=== PATIENT | female | born 1980 | race Caucasian/White ===

== ENCOUNTER 2017-10-30 21:01 | Inpatient (IN) | payer BC, MEDICAID ==
[~2017-10-30] VITALS: Ht 162.6 cm; Wt 57.0 kg
[2017-10-30] MEDS: THIAMINE 100 MG TAB PO SCH (21:00)
[2017-10-30] MEDS ORDERED: TEMA15CA2 PO (21:17)
[2017-10-30] MEDS ORDERED: HYDR-643 PO (21:17)
[2017-10-30] MEDS ORDERED: EFFE37.527 PO (21:17)
[2017-10-30] MEDS ORDERED: PROZ40CA PO (21:17)
[2017-10-30 21:43] LABS: MEAN CORPUSCULAR HEMOGLOBIN 28.2 pg (27.0-33.0); MEAN CORPUSCULAR HGB CONC 33.6 g/dl (32.0-36.5); PLATELET COUNT, AUTOMATED 221 10^3/uL (150-450); RED CELL DISTRIBUTION WIDTH 16.8 % (11.5-14.5); WHITE BLOOD COUNT 6.4 10^3/uL (4.0-10.0)
[2017-10-30 21:52] LABS: CONTROL LINE HCG INT CTR LINE PRESENT
[2017-10-30 21:57] LABS: METHADONE URINE NEGATIVE (NEGATIVE)
[2017-10-30 22:08] LABS: ALBUMIN 3.3 GM/DL (3.2-5.2); ALBUMIN/GLOBULIN RATIO 1.03 (1.00-1.93); ALKALINE PHOSPHATASE 63 U/L (45-117); ALT/SGPT 17 U/L (12-78); ANION GAP 9 MEQ/L (8-16); AST/SGOT 13 U/L (7-37); BILIRUBIN,DIRECT < 0.1 MG/DL (0.0-0.2); BILIRUBIN,TOTAL 0.2 MG/DL (0.2-1.0); BLOOD UREA NITROGEN 11 MG/DL (7-18); CALCIUM LEVEL 8.7 MG/DL (8.5-10.1); CARBON DIOXIDE LEVEL 27 MEQ/L (21-32); CHLORIDE LEVEL 108 MEQ/L (98-107); CREATININE FOR GFR 0.97 MG/DL (0.55-1.02); GLOMERULAR FILTRATION RATE > 60.0 (>60); GLUCOSE, FASTING 67 MG/DL (70-105); POTASSIUM SERUM 3.8 MEQ/L (3.5-5.1); SODIUM LEVEL 144 MEQ/L (136-145); TOTAL PROTEIN 6.5 GM/DL (6.4-8.2)
[2017-10-30] MEDS ORDERED: MAALOX 30 ML SUSP *UDC PO PRN (23:00)
[2017-10-30] MEDS ORDERED: MOM 30ML SUSPENSION UDC PO PRN (23:00)
[2017-10-30] MEDS ORDERED: LORazepam 2 MG TAB PO PRN (23:00)
[2017-10-31 00:03] VITALS: BP 120/59
--- NOTE | 2017-10-31 08:05 | ECGEPIP ---
Stationary ECG Study [facility] - ED Test Date: 2017-10-30 Pat Name: RADHA FORBES Department: Room: [place] [address] Gender: F Respiratory Assistant: yisel : 1980 Requested By: HEATHER Nash Order Number: [id number] Reading MD: David Benavides Measurements Intervals [place] Rate: 93 P: 69 NE: 139 QRS: 81 QRSD: 75 T: 62 QT: 366 QTc: 457 Interpretive Statements SINUS RHYTHM NO PRIORS FOR COMPARISON Electronically Signed On 10-31-2017 8:05:07 EST by David Benavides
[2017-10-31] MEDS: MULTIVITAMINS/MINERALS THERAP 1 TAB PO SCH (08:50)
[2017-10-31] MEDS: THIAMINE 100 MG TAB PO SCH ×2 (08:50→21:19)
[2017-10-31] MEDS: FOLIC ACID 1 MG TAB PO SCH (08:50)
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
[2017-10-31] MEDS: NICOTINE 21MG/24HR 1 EA TRANSDERMAL TD SCH (11:26)
[2017-10-31] MEDS: FLUoxetine 20 MG CAP PO SCH (11:26)
[2017-10-31 12:00] VITALS: BP 115/70
[2017-10-31] MEDS: clonazePAM 0.5 MG TAB PO PRN ×2 (15:00→21:19)
[2017-10-31 18:00] VITALS: BP 114/66
[2017-10-31] MEDS: ACETAMINOPHEN TAB 650MG DOSE (2X325MG) PO PRN (21:19)
[2017-10-31] MEDS: traZODone 50 MG TAB PO PRN (21:19)
[2017-10-31 21:56] VITALS: BP 120/68
[2017-11-01 06:00] VITALS: BP 101/57
[2017-11-01] MEDS: MULTIVITAMINS/MINERALS THERAP 1 TAB PO SCH (08:28)
[2017-11-01] MEDS: FLUoxetine 20 MG CAP PO SCH (08:28)
[2017-11-01] MEDS: THIAMINE 100 MG TAB PO SCH ×2 (08:28→21:07)
[2017-11-01] MEDS: FOLIC ACID 1 MG TAB PO SCH (08:28)
[2017-11-01] MEDS: clonazePAM 0.5 MG TAB PO PRN ×2 (08:28→21:07)
[2017-11-01] MEDS: NICOTINE 21MG/24HR 1 EA TRANSDERMAL TD SCH (08:29)
--- NOTE | 2017-11-01 10:04 | MHIPNPDOC ---
[facility] Progress Note Progress Note DATE OF SERVICE: 11/01/17 HISTORY: Patient reports better mood but still depressed, denies current SI intent and plan. Feels very anxious. Reports good sleep last night. Patient has been taking her medications. Pt reports taking klonopin 1 mg TID and prozac 60 mg daily outpt, before self discontinuing 3 weeks ago. VITAL SIGNS: See below. NEW TEST RESULTS: na CURRENT MEDICATIONS: See below. MENTAL STATUS EXAMINATION: Behavior: guarded, cooperative, related Speech: normal RRV, sad anxious tone Thought processes: linear Thought content: appropriate to conversation Judgment: poor Insight: fair Orientation: AAOx3 Mood: "depressed" Affect: dysphoric, anxious, reactive DIAGNOSES: 1. PTSD 2. MDD 3. MITCHELL ASSESSMENT: Patient is severely depressed and anxious. PROBLEM LIST: 1. Depression 2. poor sleep 3. anxiety Plan: - reinitiate prozac 20 mg daily for mood - klonopin 0.5 mg q6 for anxiety and withdrawal symptoms. Patient states that ativan made her feel sick in the past. - PRNs: trazodone, tylenol, MOM, mylanta, nicoderm - Note that pt was on klonopin 1 mg TID and prozac 60 mg daily outpt, will slowly uptitrate these medications inpatient ESTIMATED LENGTH OF STAY: 5 DAYS. TIME SPENT COUNSELING AND COORDINATING INITIAL CARE: 25 minutes. Vital Signs Vital Signs Date Time Temp Pulse Resp B/P (MAP) Pulse Ox O2 Delivery O2 Flow Rate FiO2 11/01/17 06:00 96.8 71 16 101/57 (72) 10/31/17 00:03 97 Room Air Current Medications Current Medications Acetaminophen (Tylenol Tab) 650 mg Q6HP PRN PO HEADACHE or DISCOMFORT Last administered on 10/31/17 21:19; Start 10/30/17 at 23:00; Stop 11/29/17 at 22:59 Al Hydrox/Mg Hydrox/Simethicone (Mylanta) 30 ml Q4HP PRN PO HEARTBURN/ INDIGESTION; Start 10/30/17 at 23:00; Stop 11/29/17 at 22:59 Clonazepam (KlonoPIN) 0.5 mg Q6HP PRN PO ANXIETY Last administered on 08:28; Start 10/31/17 at 11:00; Stop 11/07/17 at 10:59 Fluoxetine HCl (PROzac) 20 mg DAILY PO Last administered on 11/01/17 08:28; Start 10/31/17 at 09:00; Stop 11/30/17 at 08:59 Folic Acid (Folic Acid) 1 mg DAILY PO Last administered on 11/01/17 08:28; Start 10/31/17 at 09:00; Stop 11/30/17 at 08:59 Home Med (Med Rec Complete!) ASDIRECTED XX ; Start 10/30/17 at 23:30; Stop 10/30/17 at 23:30; Status DC Lorazepam (Ativan) 2 mg ASDIRECTED PRN PO SEE PROTOCOL; Start 10/30/17 at 23:00 ; Stop 10/31/17 at 11:07; Status DC Magnesium Hydroxide (Milk Of Magnesia) 30 ml DAILYPRN PRN PO CONSTIPATION; Start 10/30/17 at 23:00; Stop 11/29/17 at 22:59 Multivitamins (Theragram-M) 1 tab DAILY PO Last administered on 11/01/17 08: 28; Start 10/31/17 at 09:00; Stop 11/30/17 at 08:59 Nicotine (Nicoderm Cq 21mg) 1 patch DAILY TD Last administered on 11/01/17 08 :29; Start 10/31/17 at 09:00; Stop 11/30/17 at 08:59 Thiamine HCl (Thiamine HCl) 100 mg BID PO Last administered on 11/01/17 08:28 ; Start 10/30/17 at 21:00; Stop 11/02/17 at 09:01 Trazodone HCl (Desyrel) 50 mg QHSP PRN PO INSOMNIA Last administered on 21:19; Start 10/30/17 at 23:00; Stop 11/29/17 at 22:59 Allergies Coded Allergies: Aspirin (Verified Allergy, Unknown, 10/30/17) TONE ROMAN MD Nov 01, 2017 10:04
--- NOTE | 2017-11-01 11:36 | HPE ---
DATE OF ADMISSION: 10/30/2017 HISTORY OF PRESENT ILLNESS: Please refer to the psychiatric history and evaluation for further details on this admission. This examination and history is intended for medical issues which may need treatment, followup or consultation on this 37-year-old female. PRIMARY CARE PROVIDER: None. ALLERGIES: AFRIN. SOCIAL HISTORY: She is . She has three children ages 20, 18, and 15. ETOH - Drinks beer at least two times a week. Smokes - one pack of cigarettes a day. Recreational drug use - marijuana. PAST MEDICAL HISTORY: Negative. PAST SURGICAL HISTORY: Laparoscopy for endometriosis. HOME MEDICATIONS: She was on Prozac and Klonopin she states, but has not taken any medications for greater than 2 weeks. FAMILY HISTORY: Noncontributory. LABORATORY STUDIES: WBC 6.4, hemoglobin 11.8, hematocrit 35.1, platelets 221. Sodium 134, potassium 3.8, chloride 108, CO2 27, BUN 11, creatinine 0.97. TSH 3.33. Urine was positive for opiates and amphetamines, benzodiazepines and cannabinoids. REVIEW OF SYSTEMS: 10-systems review was done and was unremarkable. PHYSICAL EXAMINATION: 37-year-old cooperative female in no acute distress. Vital signs stable. Height 64 inches, weight 55 kg, body mass index (BMI) 20.8. The patient is alert and oriented times three Pupils equal and reactive to light. Extraocular movements intact. Cornea and sclera clear. Conjunctiva normal. No facial asymmetry. Pharynx, tongue, and gums pink and moist. Tongue is midline. Neck is supple, without lymphadenopathy. No thyromegaly. No goiter. Carotids 2+ without bruit. Chest clear to auscultation, without wheeze or retraction. Heart is regular. Abdomen benign. Bowel sounds positive. /Rectal: Not done. Extremities show equal strength. Full range of motion. No cyanosis, clubbing or edema. Peripheral pulses equal and palpable bilaterally. Skin is warm and dry. IMPRESSION AND PLAN: 1. Psychiatric: Plan per psychiatry. Monitor for withdrawal. 2. No acute medical issues.
[2017-11-01 18:00] VITALS: BP 92/54
[2017-11-01] MEDS: traZODone 50 MG TAB PO PRN (21:07)
[2017-11-02 07:03] VITALS: BP 101/57
[2017-11-02] MEDS: MULTIVITAMINS/MINERALS THERAP 1 TAB PO SCH (08:12)
[2017-11-02] MEDS: clonazePAM 0.5 MG TAB PO PRN ×2 (08:12→20:54)
[2017-11-02] MEDS: NICOTINE 21MG/24HR 1 EA TRANSDERMAL TD SCH (08:12)
[2017-11-02] MEDS: FLUoxetine 20 MG CAP PO SCH (08:12)
[2017-11-02] MEDS: FOLIC ACID 1 MG TAB PO SCH (08:12)
[2017-11-02] MEDS: THIAMINE 100 MG TAB PO SCH (08:12)
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
[2017-11-02 12:39] VITALS: BP 106/65
[2017-11-02] MEDS: ACETAMINOPHEN TAB 650MG DOSE (2X325MG) PO PRN (12:39)
[2017-11-02 18:34] VITALS: BP 97/53
[2017-11-02] MEDS: traZODone 50 MG TAB PO PRN (20:54)
[2017-11-03 06:49] VITALS: BP 110/57
[2017-11-03] MEDS: clonazePAM 0.5 MG TAB PO PRN (08:08)
[2017-11-03] MEDS: FOLIC ACID 1 MG TAB PO SCH (08:08)
[2017-11-03] MEDS: MULTIVITAMINS/MINERALS THERAP 1 TAB PO SCH (08:09)
[2017-11-03] MEDS: NICOTINE 21MG/24HR 1 EA TRANSDERMAL TD SCH (08:09)
[2017-11-03] MEDS ORDERED: FLUoxetine 20 MG CAP PO SCH (09:00)
[2017-11-03] MEDS ORDERED: TRAZO50TA PO (09:21)
[2017-11-03] MEDS ORDERED: FLUO20CA19 PO (09:21)
[2017-11-03] MEDS ORDERED: CLON0.5T PO (09:21)
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
[2017-11-03] MEDS ORDERED: FLUO40CA PO (10:34)
== END 2017-11-03 11:55 | disposition home or self-care (01) | DRG 755 ==
LOC: M ED 21:01 → M ED INP 22:55 → M PSY 23:55
PROVIDERS: ADMIT Psychiatry & Neurology Psychiatry; ATTEND Psychiatry & Neurology Psychiatry
DX: F43.10 Post-traumatic stress disorder, unspecified (principal); F32.9 Major depressive disorder, single episode, unspecified; F41.1 Generalized anxiety disorder; F17.210 Nicotine dependence, cigarettes, uncomplicated; F10.10 Alcohol abuse, uncomplicated; Z62.810 Personal history of physical and sexual abuse in childhood; Z91.410 Personal history of adult physical and sexual abuse; T42.4X2A Poisoning by benzodiazepines, intentional self-harm, initial encounter; Y92.009 Unspecified place in unspecified non-institutional (private) residence as the place of occurrence of the external cause; Z91.14 Patient's other noncompliance with medication regimen

== ENCOUNTER 2017-12-31 20:43 | Inpatient (IN) | payer OTHER, MEDICAID ==
[2017-12-31] MEDS: NS 1,000 ML IV ×3 (21:15→22:00)
[2017-12-31 21:16] LABS: BASO # 0.1 10^3/uL (0.0-0.2); BASO % 0.5 % (0.0-1.0); EOS # 0.1 10^3/uL (0.0-0.50); EOS % 0.7 % (0.0-3.0); HEMATOCRIT 37.9 % (36.0-47.0); HEMOGLOBIN 12.4 g/dl (12.0-16.0); IMMATURE GRANULOCYTE % 0.4 % (0-3.0); LYMPH # 1.7 10^3/uL (1.5-4.5); LYMPH % 15.1 % (24.0-44.0); MEAN CORPUSCULAR HGB CONC 32.7 g/dl (32.0-36.5); MEAN CORPUSCULAR VOLUME 85.6 fl (80.0-96.0); MONO # 0.6 10^3/uL (0.0-0.8); MONO % 5.2 % (0.0-5.0); NEUTROPHILS # 8.9 10^3/uL (1.8-7.7); NEUTROPHILS % 78.1 % (36.0-66.0); PLATELET COUNT, AUTOMATED 260 10^3/uL (150-450); RED BLOOD COUNT 4.43 10^6/uL (4.00-5.40); RED CELL DISTRIBUTION WIDTH 15.1 % (11.5-14.5); WHITE BLOOD COUNT 11.4 10^3/uL (4.0-10.0)
[2017-12-31] MEDS ORDERED: NOREPINEPHRINE BITARTRATE 16 MG in D5W 484 ML IV (21:45)
[2017-12-31 21:53] LABS: CONTROL LINE HCG INT CTR LINE PRESENT; HCG, SERUM QUALITATIVE NEGATIVE (NEGATIVE)
[2017-12-31] MEDS: GLUCAGON FOR INJ 1 MG VIAL (J1610) IV (21:57)
[2017-12-31 22:07] LABS: ALBUMIN 3.7 GM/DL (3.2-5.2); ALBUMIN/GLOBULIN RATIO 0.97 (1.00-1.93); ALKALINE PHOSPHATASE 72 U/L (45-117); ALT/SGPT 16 U/L (12-78); ANION GAP 9 MEQ/L (8-16); AST/SGOT 11 U/L (7-37); BILIRUBIN,DIRECT < 0.1 MG/DL (0.0-0.2); BILIRUBIN,TOTAL 0.3 MG/DL (0.2-1.0); BLOOD UREA NITROGEN 9 MG/DL (7-18); CALCIUM LEVEL 8.3 MG/DL (8.5-10.1); CARBON DIOXIDE LEVEL 23 MEQ/L (21-32); CHLORIDE LEVEL 108 MEQ/L (98-107); CPK CREATINE PHOSPHOKINASE 130 U/L (26-192); CREATININE FOR GFR 1.05 MG/DL (0.55-1.30); ETHYL ALCOHOL (ETHANOL) 0.036 % (0.000-0.010); GLOMERULAR FILTRATION RATE > 60.0 (>60); GLUCOSE, FASTING 83 MG/DL (70-100); POTASSIUM SERUM 4.1 MEQ/L (3.5-5.1); SALICYLATE LEVEL 3.7 MG/DL (5.0-30.0); SODIUM LEVEL 140 MEQ/L (136-145); TOTAL PROTEIN 7.5 GM/DL (6.4-8.2)
[2017-12-31 22:09] LABS: ACETAMINOPHEN LEVEL < 2.0 UG/ML (10.0-30.0)
[2017-12-31] MEDS: NOREPINEPHRINE BITARTRATE 16 MG in D5W 484 ML IV ×2 (22:26→23:00)
[2017-12-31 23:13] LABS: AMPHETAMINES LEVEL URINE POSITIVE (NEGATIVE); BARBITURATES URINE NEGATIVE (NEGATIVE); BENZODIAZEPINES URINE POSITIVE (NEGATIVE); CANNABINOIDS URINE POSITIVE (NEGATIVE); COCAINE METABOLITE URINE NEGATIVE (NEGATIVE); METHADONE URINE NEGATIVE (NEGATIVE); OPIATES URINE NEGATIVE (NEGATIVE); PHENCYCLIDINE URINE NEGATIVE (NEGATIVE)
[2017-12-31] MEDS ORDERED: NS 1,000 ML IV (23:46)
[2017-12-31] MEDS: D5W/0.9% SODIUM CHLORIDE 1,000 ML IV (23:58)
[2018-01-01] MEDS: D5W/0.9% SODIUM CHLORIDE 1,000 ML IV ×2 (01:22→11:03)
[2018-01-01 02:46] LABS: BEDSIDE GLUCOSE 85 MG/DL (70-105)
[2018-01-01] MEDS: PHENYLEPHRINE HCL INJ 50 MG in D5W 500 ML IV (02:49)
[2018-01-01 04:24] LABS: HEMATOCRIT 32.3 % (36.0-47.0); HEMOGLOBIN 10.5 g/dl (12.0-16.0); MEAN CORPUSCULAR HEMOGLOBIN 28.3 pg (27.0-33.0); MEAN CORPUSCULAR HGB CONC 32.5 g/dl (32.0-36.5); MEAN CORPUSCULAR VOLUME 87.1 fl (80.0-96.0); PLATELET COUNT, AUTOMATED 216 10^3/uL (150-450); RED BLOOD COUNT 3.71 10^6/uL (4.00-5.40); RED CELL DISTRIBUTION WIDTH 15.3 % (11.5-14.5); WHITE BLOOD COUNT 6.9 10^3/uL (4.0-10.0)
[2018-01-01 04:46] LABS: ANION GAP 4 MEQ/L (8-16); BLOOD UREA NITROGEN 10 MG/DL (7-18); CALCIUM LEVEL 7.2 MG/DL (8.5-10.1); CARBON DIOXIDE LEVEL 23 MEQ/L (21-32); CHLORIDE LEVEL 117 MEQ/L (98-107); CREATININE FOR GFR 0.77 MG/DL (0.55-1.30); GLOMERULAR FILTRATION RATE > 60.0 (>60); GLUCOSE, FASTING 125 MG/DL (70-100); MAGNESIUM LEVEL 2.2 MG/DL (1.8-2.4); SODIUM LEVEL 144 MEQ/L (136-145)
[2018-01-01] MEDS ORDERED: NS 1,000 ML IV (10:00)
[2018-01-01] MEDS: NS 1,000 ML IV ×2 (11:05→20:38)
[2018-01-01] MEDS: ENOXAPARIN 40 MG/0.4 ML SYRINGE (J1650) SC (12:47)
[2018-01-01] MEDS ORDERED: LORazepam 0.5 MG TAB PO (17:15)
[2018-01-02 04:28] LABS: HEMATOCRIT 31.4 % (36.0-47.0); HEMOGLOBIN 9.9 g/dl (12.0-16.0); MEAN CORPUSCULAR HGB CONC 31.5 g/dl (32.0-36.5); PLATELET COUNT, AUTOMATED 170 10^3/uL (150-450); RED BLOOD COUNT 3.53 10^6/uL (4.00-5.40); RED CELL DISTRIBUTION WIDTH 15.6 % (11.5-14.5); WHITE BLOOD COUNT 4.3 10^3/uL (4.0-10.0)
[2018-01-02 04:48] LABS: ANION GAP 6 MEQ/L (8-16); BLOOD UREA NITROGEN 10 MG/DL (7-18); CALCIUM LEVEL 7.1 MG/DL (8.5-10.1); CARBON DIOXIDE LEVEL 21 MEQ/L (21-32); CHLORIDE LEVEL 119 MEQ/L (98-107); CREATININE FOR GFR 0.72 MG/DL (0.55-1.30); GLOMERULAR FILTRATION RATE > 60.0 (>60); GLUCOSE, FASTING 92 MG/DL (70-100); SODIUM LEVEL 146 MEQ/L (136-145)
[2018-01-02] MEDS: ENOXAPARIN 40 MG/0.4 ML SYRINGE (J1650) SC (08:08)
== END 2018-01-02 16:28 | DRG 812 ==
LOC: M ICU 01-01 00:39 → M ED 20:43 → M ED INP 22:30
DX: T46.5X2A Poisoning by other antihypertensive drugs, intentional self-harm, initial encounter (principal); F33.2 Major depressive disorder, recurrent severe without psychotic features; T46.902A Poisoning by unspecified agents primarily affecting the cardiovascular system, intentional self-harm, initial encounter; Y92.009 Unspecified place in unspecified non-institutional (private) residence as the place of occurrence of the external cause; N80.9 Endometriosis, unspecified; E02 Subclinical iodine-deficiency hypothyroidism; F10.129 Alcohol abuse with intoxication, unspecified; F41.9 Anxiety disorder, unspecified; F60.89 Other specific personality disorders; F12.10 Cannabis abuse, uncomplicated; F15.10 Other stimulant abuse, uncomplicated; Z79.899 Other long term (current) drug therapy; Z88.6 Allergy status to analgesic agent; Z62.810 Personal history of physical and sexual abuse in childhood; Z91.411 Personal history of adult psychological abuse

== ENCOUNTER 2018-01-02 16:30 | Inpatient (IN) | payer OTHER ==
[~2018-01-02 16:30] MED LIST: MAALOX 30 ML SUSP *UDC PO; MOM 30ML SUSPENSION UDC PO
[2018-01-02] MEDS: ACETAMINOPHEN TAB 650MG DOSE (2X325MG) PO (17:50)
[2018-01-02] MEDS: NICOTINE 21MG/24HR 1 EA TRANSDERMAL TD (18:13)
[2018-01-02] MEDS ORDERED: ACETAMINOPHEN TAB 650MG DOSE (2X325MG) PO (22:00)
[2018-01-03] MEDS: NICOTINE 21MG/24HR 1 EA TRANSDERMAL TD (08:39)
[2018-01-03] MEDS: OLANZapine 5 MG TAB PO ×2 (12:03→20:38)
[2018-01-03] MEDS: PARoxetine 12.5 MG **CR** TAB PO (15:01)
[2018-01-03] MEDS: traZODone 50 MG TAB PO (20:38)
[2018-01-04] MEDS: OLANZapine 5 MG TAB PO ×2 (08:03→20:41)
[2018-01-04] MEDS: PARoxetine 12.5 MG **CR** TAB PO (08:03)
[2018-01-04] MEDS: NICOTINE 21MG/24HR 1 EA TRANSDERMAL TD (08:03)
[2018-01-04] MEDS: traZODone 50 MG TAB PO (20:41)
[2018-01-05] MEDS: OLANZapine 5 MG TAB PO (08:08)
[2018-01-05] MEDS: NICOTINE 21MG/24HR 1 EA TRANSDERMAL TD (08:09)
[2018-01-05] MEDS: PARoxetine 12.5 MG **CR** TAB PO (08:09)
== END 2018-01-05 11:30 | disposition home or self-care (01) | DRG 754 ==
LOC: M PSY 16:30
DX: F32.9 Major depressive disorder, single episode, unspecified (principal); F43.10 Post-traumatic stress disorder, unspecified; F60.3 Borderline personality disorder; Z88.6 Allergy status to analgesic agent